=== PATIENT | female | born 1995 | race Two or more races ===

== ENCOUNTER 2017-07-30 01:53 | Emergency (ER) | payer OTHER ==
[~2017-07-30] VITALS: Ht 157.5 cm; Wt 56.7 kg
[2017-07-30 01:56] VITALS: BP 125/75
[2017-07-30] MEDS ORDERED: IBUPROFEN 400 MG TABLET ONE (02:14)
[2017-07-30] MEDS ORDERED: IBUPROFEN 400 MG TABLET PO ONE (02:30)
== END 2017-07-30 02:24 | disposition home or self-care (01) ==
LOC: ER 01:56
DX: M54.5 Low back pain (principal); V49.59XA Passenger injured in collision with other motor vehicles in traffic accident, initial encounter; Y93.89 Activity, other specified; Y92.89 Other specified places as the place of occurrence of the external cause; Y99.8 Other external cause status
CPT/HCPCS: A4606; Z7610